=== PATIENT | male | born 1940 | race Caucasian/White ===

== ENCOUNTER 2019-09-07 11:45 | Outpatient (CLI) | payer BC, SELFPAY ==
--- NOTE | ~2019-09-07 | XR_ITS ---
EXAMINATION: XR chest 2V DATE: 09/07/2019 12:21 INDICATION: Cough TECHNIQUE: PA and lateral views of the chest are obtained. COMPARISON: None available FINDINGS: Linear airspace opacities of the lingula and left lower lobe have the appearance of subsegm ental atelectasis. There are patchy opacities of the right lower lobe. There is no pleural effusion o r pneumothorax. The cardiomediastinal silhouette is normal. There is mild thoracic spondylosis. A leif l-lead cardiac pacemaker of the left chest wall ends with leads in expected locations. IMPRESSION: 1. Left lower lobe atelectasis and patchy airspace opacities of the right lower lobe, likely pneumoni a. Recommend followup radiographs in 10-14 days after appropriate therapy to evaluate for improvement /resolution. Reviewed, dictated and finalized at location A. IMPRESSION: 1. Left lower lobe atelectasis and patchy airspace opacities of the right lower lobe, likely pneumonia. Recommend followup radiographs in 10-14 days after tommie ropriate therapy to evaluate for improvement/resolution.
--- NOTE | ~2019-09-07 | US_ITS ---
EXAMINATION: US venous doppler LE RT DATE: 09/07/2019 12:23 INDICATION: Right lower limb swelling, warmth and erythema TECHNIQUE: Grayscale ultrasound images without and with compression and Doppler ultrasound images of the right lower extremity veins were obtained. COMPARISON: None. FINDINGS: The visualized portions of right common femoral vein, profunda (deep) femoral vein, femoral vein, pop liteal vein, peroneal trunk, posterior tibial veins, peroneal veins, gastrocnemius vein and greater s aphenous vein outflow are patent. Normal-sized left inguinal lymph nodes with prominent central fatty janel. IMPRESSION: 1. No deep venous thrombosis in the right lower limb. Reviewed, dictated and finalized at location A.
== END 2019-09-07 11:46 | disposition home or self-care (01) ==
LOC: ANHIMG 11:54
PROVIDERS: PCP Internal Medicine; Visit Provider Internal Medicine
DX: R22.41 Localized swelling, mass and lump, right lower limb (principal); R05 Cough; J98.11 Atelectasis; R91.8 Other nonspecific abnormal finding of lung field
CPT/HCPCS: 71046; 93971

== ENCOUNTER 2022-02-02 10:24 | Emergency (ER) | payer BC, SELFPAY ==
--- NOTE | ~2022-02-02 | XR_ITS ---
XR finger 3rd LT min 2V 02/02/2022 11:03 Indication: Blunt trauma to the left third finger. Procedure: 4 views left third finger Comparison: No prior studies for comparison. Findings: No acute fracture or traumatic malalignment. 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 There is an avulsion fracture of the second DIP joint, likely chronic. Osteopenia. No focal soft ti ssue abnormality. Impression: 1: No acute fracture. Reviewed, dictated and finalized at location A. Impression: 1: No acute fracture.
[2022-02-02 10:37] VITALS: BP 102/54; PULSE 63; RESP 18; TEMP 35.7; O2SAT 95
--- NOTE | 2022-02-02 10:42 | ED.GENADULT ---
HPI - General Adult General Chief complaint: Extremity Injury, Upper Stated complaint: Right Middle Finger Pain Time Seen by Provider: 02/02/22 10:42 Source: patient and RN notes reviewed Mode of arrival: ambulatory Limitations: no limitations History of Present Illness HPI narrative: 81-year-old male presents to the [facility] with right middle finger pain. Patient reports that he closed it on a door last night. Presented to the [facility] with his daughter. They state they called her primary care provider was referred to the [facility]. Patient is alert and oriented. Answering all questions appropriately. Daughter states that he was eating breakfast this morning and appeared confused. Discussed with daughter and patient referral to the emergency room for confusion but we can take care of the finger. Patient was very adamant about wanting to just take care of his right middle finger patient denies any headache, blurry vision or change in vision. Denies any chest pain or shortness of breath. Related Data Home Medications Medication Instructions Recorded Confirmed finasteride 5 mg tablet 5 mg PO DAILY 02/02/22 02/02/22 lisinopril 10 mg tablet 10 mg PO DAILY 02/02/22 02/02/22 tamsulosin 0.4 mg capsule 0.4 mg PO DAILY 02/02/22 02/02/22 Allergies Allergy/AdvReac Type Severity Reaction Status Date / Time amoxicillin [From Augmentin] Allergy Other Verified 02/02/22 10:53 clavulanic acid Allergy Other Verified 02/02/22 10:53 [From Augmentin] Review of Systems Review of Systems: All systems reviewed & are unremarkable except as noted in HPI and below Constitutional: Constitutional: Reports no additional constitutional complaints, Denies chills and Denies fever(s) Eyes: Eyes: Reports no additional eye complaints ENT: Reports system reviewed and no additional complaints, except as documented Cardiovascular: Cardiovascular: Reports no additional cardiovascular complaints Respiratory: Respiratory: Reports no additional respiratory complaints Gastrointestinal: Gastrointestinal: Reports no additional gastrointestinal complaints Musculoskeletal: Musculoskeletal: Reports as per HPI Integumentary/Breasts: Skin/Breast: Reports system reviewed and no additional complaints, except as docu Neurologic: Reports system reviewed and no additional complaints, except as documented Psychiatric: Psychiatric: Reports no additional psychiatric complaints Allergic/Immunologic: Allergic/Immunologic: Reports no additional allergic/immunologic complaints PMFSH Past Medical History Medical History History of high blood pressure Social History Social History Smoking status: Former smoker Alcohol intake: current Comments At the time of my signature, I reviewed and agree with the nursing past medical, surgical, social, and family history. There is no relevant family history pertinent to the patient complaint. Exam Const: General: healthy appearing, no acute distress and alert Nutritional Appearance: well nourished Orientation/consciousness: patient oriented x3 Limitations: no limitations HENMT: Head: normal to inspection Ears: external ears normal General nose exam: Normal external nose present Eyes: General: appearance normal, both eyes and all related structures Conjunctivae: conjunctivae normal Pupils: Equal, round and reactive pupils present Neck: Neck: normal visual inspection, no lymphadenopathy and no meningeal signs Chest: Chest palpation & inspection: normal inspection of the chest Resp: Effort & Inspection: normal respiratory effort and no use of accessory muscles Auscultation: clear to auscultation bilaterally, no crackles, no rales, no rhonchi and no wheezes Cardio: Rate: regular rate Rhythm: regular rhythm GI: GI Palp: Yes Soft to palpation and No Tenderness to palpation present (GI) Back
== END 2022-02-02 11:50 | disposition home or self-care (01) ==
PROVIDERS: Emergency Provider Nurse Practitioner; PCP Internal Medicine
DX: S60.131A Contusion of right middle finger with damage to nail, initial encounter (principal); X58.XXXA Exposure to other specified factors, initial encounter; I10 Essential (primary) hypertension; Z87.891 Personal history of nicotine dependence
CPT/HCPCS: 11740; 73140; 99213; G0463

== ENCOUNTER 2023-06-29 10:38 | Outpatient (CLI) | payer OTHER, SELFPAY ==
--- NOTE | ~2023-06-29 | CT_ITS ---
CT of the Abdomen and Pelvis: Indication: Microscopic hematuria Technique: 2.5 mm axial scans were obtained through the abdomen and pelvis prior to and following in travenous administration of 130 cc of Omnipaque 350. Dose reduction technique was used on this scan b y utilizing automated exposure control and iterative reconstruction technique. The dose-length produc t (DLP) was 781.68 mGy-cm. Findings: Scans through the lung bases demonstrate bibasilar atelectatic change. The liver, spleen, pancreas, gallbladder, right adrenal gland are within normal limits. 1 low-density left adrenal nodule is consistent with adenoma. There are several nonobstructing left renal stones m easuring up to 6 mm. There is a punctate nonobstructing right renal stone. Bilateral renal cysts are noted. There are atherosclerotic calcifications of the aorta. No lymphadenopathy. No bowel obstruction or bowel wall thickening. There is no evidence to suggest acute appendicitis. Images through the pelvis were performed. Urinary bladder unremarkable. Prostate gland is markedly en larged, and indents into the bladder base. Impression: Bilateral nonobstructing renal stones, as above. 1 cm left adrenal adenoma. Enlarged prostate gland. Reviewed, dictated and finalized at location M. [employer] Impression: Bilateral nonobstructing renal stones, as above. 1 cm left adrenal adenoma. Enlarged prostate gland.
[2023-06-29 11:10] LABS: Estimated Glomerular Filt Rate 58
== END 2023-06-29 10:39 | disposition home or self-care (01) ==
LOC: ANHIMG 10:39
PROVIDERS: PCP Internal Medicine; Visit Provider Physician Assistant
DX: D35.02 Benign neoplasm of left adrenal gland (principal); N20.0 Calculus of kidney; N40.0 Benign prostatic hyperplasia without lower urinary tract symptoms; R31.29 Other microscopic hematuria
CPT/HCPCS: 74178; Q9967

== ENCOUNTER 2023-08-18 09:43 | Outpatient (CLI) | payer OTHER, SELFPAY ==
--- NOTE | ~2023-08-18 | XR_ITS ---
Supine and upright views of the abdomen Clinical history: Renal stone Findings: Bowel gas pattern is nonspecific. No evidence for obstruction or free air. No abnormal mass lesion or calcification is seen. 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 Impression: No definite renal stone seen. Reviewed, dictated and finalized at [facility]. Impression: No definite renal stone seen.
== END 2023-08-18 09:44 | disposition home or self-care (01) ==
LOC: ANHIMG 09:45
PROVIDERS: PCP Internal Medicine; Visit Provider Urology
DX: N20.0 Calculus of kidney (principal)
CPT/HCPCS: 74018